=== PATIENT | female | born 1990 | race African-American/Black ===

== ENCOUNTER 2022-02-10 03:12 | Emergency (ER) | payer OTHER ==
[~2022-02-10] VITALS: Ht 157.5 cm; Wt 74.8 kg
[2022-02-10] MEDS ORDERED: MAGNESIUM SULFATE 2 GM in IV DEXTROSE 5% 100 ML IV ONE (03:30)
[2022-02-10] MEDS ORDERED: ALBU8.5H8 IH (03:30)
[2022-02-10] MEDS ORDERED: predniSONE 10 MG TABLET PO ONE (03:30)
[2022-02-10] MEDS ORDERED: MAGNESIUM SULFATE/D5W 200 ML ONE (03:30)
[2022-02-10] MEDS ORDERED: MAG HYDROX/AL HYDROX/SIMETH 30 ML LIQUID UDC PO ONE (03:30)
[2022-02-10] MEDS ORDERED: ALBUTEROL SULFATE 2.5 MG/3 ML NEBU NEB ONE (03:30)
[2022-02-10] MEDS ORDERED: IPRATROPIUM BROMIDE 0.5 MG/2.5 ML NEBU NEB ONE (03:30)
[2022-02-10] MEDS ORDERED: ALBUTEROL SULFATE 2.5 MG/3 ML NEBU ONE (03:34)
[2022-02-10] MEDS ORDERED: IPRATROPIUM BROMIDE 0.5 MG/2.5 ML NEBU ONE (03:34)
[2022-02-10 03:49] LABS: HEMATOCRIT 38.1 % (31.2-41.9); MEAN CORPUSCULAR HEMOGLOBIN 27.3 uug (24.7-32.8); MEAN CORPUSCULAR VOLUME 78.5 fL (75.5-95.3); PLATELET COUNT (AUTO) 290 K/uL (179-408)
[2022-02-10] MEDS ORDERED: predniSONE 10 MG TABLET ONE (03:50)
[2022-02-10] MEDS ORDERED: predniSONE 50 MG TABLET ONE (03:50)
[2022-02-10] MEDS ORDERED: MAG HYDROX/AL HYDROX/SIMETH 30 ML LIQUID UDC ONE (03:50)
[2022-02-10 04:00] LABS: CREATININE 0.9 mg/dL (0.6-1.3); POTASSIUM 3.1 mmol/L (3.5-5.1)
[2022-02-10] MEDS ORDERED: POTASSIUM BICARBONATE/CIT AC 25 MEQ TABLET.EFF PO ONE (04:15)
[2022-02-10] MEDS ORDERED: PRED20TA PO (04:19)
[2022-02-10] MEDS ORDERED: FLUT12AE5 INH (04:19)
[2022-02-10] MEDS ORDERED: ALBU6.7H9 INH (04:19)
[2022-02-10] MEDS ORDERED: POTASSIUM BICARBONATE/CIT AC 25 MEQ TABLET.EFF ONE (04:20)
[2022-02-10] MEDS ORDERED: MAGNESIUM SULFATE/D5W 100 ML ONE (04:20)
[2022-02-10] MEDS: MAGNESIUM SULFATE/D5W 100 ML IV SCH ×2 (04:29→04:59)
--- NOTE | 2022-02-10 05:14 | NUR ---
Patient discharged to home in stable condition. Written and verbal after care instructions given. Patient verbalizes understanding of instructions. Stressed follow up or return to ER for worsening s/s. Patient is a/ox4, NAD noted. Patient is able to walk with steady gait
[2022-02-10 05:20] VITALS: BP 136/78
== END 2022-02-10 05:20 | disposition home or self-care (01) ==
LOC: ER 03:21
DX: J45.902 Unspecified asthma with status asthmaticus (principal); E83.42 Hypomagnesemia; E87.6 Hypokalemia; D72.10 Eosinophilia, unspecified
CPT/HCPCS: 99285; 96365; 96366; 80048; 83735; 85025; 36415; J7512 ×2; J3475 ×3; A4663; J3590